=== PATIENT | female | born 1985 | race Caucasian/White ===

== ENCOUNTER 2016-11-18 16:52 | Emergency (ER) | payer OTHER ==
--- OUTSIDE RECORDS SUMMARY | 2016-11-18 17:35 | XMS REPORT | Continuity of Care Document ---
:1985 Author Organization [facility] [place] [address] Care Team Providers Name Role Phone Hermelinda Lobo Primary Care Provider [phone] Source Comments This disclosure is being made pursuant to the [employer] program and maynot contain all information available regarding this patient.[facility] Active Allergies and Adverse Reactions No Known Allergies Current Medications Be aware that medications may not be up to date as of this document. Alwaysverify current medications with the patient. Prescription Sig. Disp. Refills Start Date End Date Status amoxicillin-clavulanat Take 1 tablet by Active e (AUGMENTIN) 875-125 mouth 2 (two) MG per tablet times daily. omeprazole (PRILOSEC) Take 20 mg by Active 20 MG capsule mouth as needed. norgestim-eth estrad Take 1 tablet by 28 tablet 11 09/13/2016 Active triphasic mouth daily. (TRINESSA/BQXSG-NLT-UB CLEN) 0.18/0.215/0.25 MG-35 MCG TABS tablet phentermine 37.5 MG Take 1 capsule 30 capsule 0 09/13/2016 Active capsule (37.5 mg total) by mouth every morning. 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 Pulse 71 06/20/2016 10:27 AM SALES FORECAST ANALYST Temperature 36.4 C (97.5 F) 06/20/2016 10:27 AM SALES FORECAST ANALYST Respiratory Rate 20 03/29/2014 10:22 AM CDT Height 1.6 m (5' 3") 06/20/2016 10:27 AM SALES FORECAST ANALYST Weight 107.502 kg (237 lb) 06/20/2016 10:27 AM SALES FORECAST ANALYST Body Mass Index 41.99 06/20/2016 10:27 AM SALES FORECAST ANALYST Oxygen Saturation 98% 06/20/2016 10:27 AM SALES FORECAST ANALYST Plan of Care Health Maintenance Due Date Last Done Comments Tetanus/Pertussis (1 - Tdap) 2004 Pap Smear 2006 Influenza Immunization (#1) 2016 Results from Last 3 Months Not on file
--- OUTSIDE RECORDS SUMMARY | 2016-11-18 17:35 | XMS REPORT | Continuity of Care Document ---
:1985 Author Organization [facility] ([facility]) Address [address] [place] [address] Phone [phone] Care Team Providers Name Role Phone Provider, No-Primary Care Primary Care Provider Unavailable Source Comments This disclosure is being made pursuant to the Care Everywhere program, applicable federal and state laws, and may not contain all informaitonavailable regarding this patient.[facility] ([facility]) Active Allergies and Adverse Reactions No Known Allergies Current Medications Prescription Sig. Disp. Refills Start Date End Date Status FLUTICASONE 50 05/01/2014 Active mcg/Actuation nasal spray clomiPHENE 50 mg Take 2 Tabs by mouth 10 Tab 6 07/28/2014 Active tablet daily. Take on days 3 through 7 of cycle. Indications: OVULATION STIMULATION Active Problems Problem Noted Date BMI 39.0-39.9,adult 07/28/2014 Infertility, female, primary 11/11/2013 Social History Tobacco Use Types Packs/Day Years Used Date Never Smoker Smokeless Tobacco: Never Used Alcohol Use Drinks/Week oz/Week Comments No Last Filed Vital Signs Vital Sign Reading Time Taken Blood Pressure 127/69 07/28/2014 10:01 AM POISING INSPECTOR Pulse 78 07/28/2014 10:01 AM POISING INSPECTOR Temperature 36.3 C (97.3 F) 07/28/2014 10:01 AM POISING INSPECTOR Respiratory Rate 16 09/04/2010 7:29 AM CDT Height 1.6 m (5' 3") 07/28/2014 10:01 AM POISING INSPECTOR Weight 102.2 kg (225 lb 5 oz) 07/28/2014 10:01 AM POISING INSPECTOR Body Mass Index 39.92 07/28/2014 10:01 AM POISING INSPECTOR Oxygen Saturation - - Plan of Care Health Maintenance Due Date Last Done Comments Hepatitis B Vaccine (1 of 3 - Primary Series) 1985 Tdap Vaccine 1996 Lipid Disorder Screening 08/31/2003 MMR Vaccine 08/31/2003 Td Vaccine 08/31/2003 Varicella Vaccine (1 of 2 - Adult - No Evidence of 08/31/2003 Immunity) Cervical Cancer Screening 08/31/2015 Influenza Vaccine: Seasonal (#1) 01/08/2016 Results from Last 3 Months Not on file
[2016-11-18 17:37] LABS: Hematocrit 36.3 % (37.0-47.0); Hemoglobin 12.4 gm/dL (12.5-16.0); Mean Cell Volume 81.8 fl (78-100); Mean Corpuscular Hemoglobin 27.9 pg (27-31); Mean Corpuscular Hgb Conc 34.2 g/dl (32-36); Mean Platelet Volume 10.6 fl (6.0-9.5); Neutrophil # 5.5 K/mm3 (1.3-6.0); Neutrophil % 61.6 % (42-75.0); Platelet Count 208 K/mm3 (150-450); Red Blood Count 4.44 M/mm3 (4.2-5.4); Red Cell Distribution Width 12.9 % (11.5-14.0); White Blood Count 8.9 K/mm3 (4.0-10.5)
[2016-11-18 17:51] LABS: Urine Bilirubin Negative (NEGATIVE); Urine Ketone Negative (NEGATIVE); Urine Nitrite Negative (NEGATIVE); Urine Protein 15 mg/dL (NEGATIVE)
[2016-11-18 18:08] LABS: Urine Appearance Clear; Urine Blood 5 /ul (NEGATIVE); Urine Color Yellow
[2016-11-18 18:09] LABS: Urine RBC None Seen /hpf (0-5); Urine WBC TRACE /hpf (0-5)
[2016-11-18 18:10] LABS: Urine Bacteria 2+
--- NOTE | 2016-11-18 18:38 | ERNOTE ---
Medical Problem HPI - Narrative Date of Service: 11/18/16 - General Chief Complaint: General Assessment Time Seen by Provider: 11/18/16 17:20 Source: patient, RN notes reviewed Exam Limitations: no limitations - Immun/Allergies/Home Medications Immunizations: IMMUNIZATION HX Immunizations Up to Date Yes History of Influenza Vaccine Yes Allergies/Adverse Reactions: Allergies No Known Allergies Allergy (Verified 11/18/16 17:17) - History of Present History Narrative: 31 y/o female ambulatory to the ED for pelvic cramping and vaginal bleeding. She believes she is 8 to 10 weeks . She had a positive home test, but is unsure when exactly her LMP was. Her OB appointment is on 11/27. This is her second . She began cramping off and on 3 days ago. She began having some spotting today. Her blood type is O positive. Review of Systems - Review of Systems Constitutional: Absent: recent illness, fever, chills, malaise EYE: Present: no symptoms reported ENT: Present: no symptoms reported Respiratory: Absent: shortness of breath, cough Cardiology: Absent: chest pain, syncope, edema Gastrointestinal/Abdominal: Present: nausea. Absent: vomiting, constipation Genitourinary: Absent: frequency, dysuria Musculoskeletal: Absent: back pain, muscle pain Skin: Absent: rash, lesions Neurological: Absent: headache, dizziness/light-headedness Endocrine: Present: no symptoms reported Hematologic/Lymphatic: Present: no symptoms reported Psych: Present: no symptoms reported - Patient's Past Medical History Patient History - Medical: GERD Patient History - Cardiac/Respiratory: No pertinent hx Patient History - Cancer: No Hx of Cancer Patient History - Surgical Procedures: Appendectomy, Ear Tubes Patient History - Other: None LMP (females 10-50): LMP (Calendar): 08/02/16 - Family History Mother Family History - Cardiac/Respiratory: Asthma, Hypertension Grandmother-Maternal Family History - Cardiac/Respiratory: Hypertension - Social History Living Situations: spouse Abuse History: No History of abuse Psych History: No pertinent hx Smoking Status: Never smoker Do you dip or chew tobacco: No Alcohol Use: none Drug Use: none - Immunizations Immunizations Up to Date: Yes History of Influenza Vaccine: Yes Physical Exam - Physical Exam General Appearance: Present: wd/wn, alert, no apparent distress Neck: Present: normal inspection, nontender, supple, full range of motion Respiratory: Present: no respiratory distress, normal breath sounds, no accessory muscle use, lungs clear Cardiovascular/Chest: Present: regular rate, rhythm, no murmur, normal peripheral pulses Gastrointestinal/Abdominal: Present: normal bowel sounds, nondistended, soft, tenderness - LLQ. Absent: guarding, mass Back Exam: Present: normal inspection, no CVA tenderness Neurological Exam: Present: alert, oriented, normal mood/affect, no motor/ sensory deficits Skin Exam: Present: normal color, warm/dry ED Progress - Results and Orders Patient's Lab Results:: I have reviewed the patient's lab results. - Vital Signs Patient's Vital Signs:: I have reviewed the patient's vital signs. Vital Signs: Vital Signs 11/18/16 11/18/16 17:02 18:31 Temperature 36.3 C L 36.6 C Pulse Rate 82 74 Respiratory 12 14 Rate Blood Pressure 111/53 111/61 O2 Sat by Pulse 99 98 Oximetry - CT/Ultrasound CT/Ultrasound Narrative: OB ultrasound shows a single viable intrauterine with an estimated gestational age of 7 weeks and 1 day, no evidence of ectopic - Progress/Reassessment Chief Complaint: General Assessment Progress:: Unchanged Departure - Departure Clinical Impression: Subchorionic hemorrhage in first trimester Disposition: Home Follow Up Needed Condition: Stable Instructions: Subchorionic Hematoma Additional Instructions: No intercourse until seen by your OB Follow up with your OB as scheduled, or return for heavy bleeding as discussed Referrals: Ramesh Hood MD [Staff Physician] - 11/27/16 10:30 am
[2016-11-18 20:12] VITALS: BP 116/72
== END 2016-11-18 20:05 | disposition home or self-care (01) ==
LOC: ER 16:52
DX: O20.8 Other hemorrhage in early pregnancy (principal); Z3A.01 Less than 8 weeks gestation of pregnancy